=== PATIENT | male | born 1980 | race Caucasian/White ===

== ENCOUNTER 2018-05-18 17:14 | Emergency (ER) | payer OTHER ==
[~2018-05-18] VITALS: Ht 188 cm; Wt 102.1 kg
[2018-05-18] MEDS ORDERED: SUBOXONE 12 MG1 EACH PO (17:30)
[2018-05-18] MEDS ORDERED: CLONAZEPAM 1 MG1 M1 PO (17:30)
[2018-05-18] MEDS ORDERED: GARAMYCIN5 ML OPHTHALMIC (18:50)
[2018-05-18 19:10] VITALS: BP 144/86
== END 2018-05-18 19:10 | disposition home or self-care (01) ==
LOC: M.ERS 17:14
DX: T26.91XA Corrosion of right eye and adnexa, part unspecified, initial encounter (principal); Y93.89 Activity, other specified; Y92.89 Other specified places as the place of occurrence of the external cause; Y99.8 Other external cause status

== ENCOUNTER 2018-12-18 15:58 | Emergency (ER) | payer OTHER ==
[~2018-12-18] VITALS: Ht 188 cm; Wt 97.5 kg
[~2018-12-18 15:58] MED LIST: CLONAZEPAM 1 MG1 M1 PO; GARAMYCIN5 ML OPHTHALMIC; SUBOXONE 12 MG1 EACH PO
[2018-12-18] MEDS ORDERED: IBUPROFEN 800800 M1 PO (17:04)
[2018-12-18] MEDS ORDERED: NORCO 5-325 TA1 EAC1 PO (17:04)
[2018-12-18 17:32] VITALS: BP 139/87
== END 2018-12-18 17:32 | disposition home or self-care (01) ==
LOC: M.ERS 15:58
DX: S22.42XA Multiple fractures of ribs, left side, initial encounter for closed fracture (principal); F17.210 Nicotine dependence, cigarettes, uncomplicated; W18.39XA Other fall on same level, initial encounter; Y93.89 Activity, other specified; Y92.89 Other specified places as the place of occurrence of the external cause; Y99.8 Other external cause status

== ENCOUNTER 2020-06-17 15:05 | Emergency (ER) | payer OTHER ==
[~2020-06-17] VITALS: Ht 188 cm; Wt 99.8 kg
[~2020-06-17 15:05] MED LIST changes: +IBUPROFEN 800800 M1 PO; +NORCO 5-325 TA1 EAC1 PO
[2020-06-17 15:47] LABS: ABSOLUTE BASOPHILS 0.1 thou/uL (0.0-0.2); ABSOLUTE EOSINOPHILS 0.9 thou/uL (0.0-0.7); ABSOLUTE LYMPHOCYTES 2.3 thou/uL (0.8-5.3); ABSOLUTE MONOCYTES 0.7 thou/uL (0.0-1.2); ABSOLUTE NEUTROPHILS 10.5 thou/uL (1.6-8.1); BASOPHILS 0.7 %; EOSINOPHILS 6.3 %; HEMATOCRIT 46.4 % (42.0-52.0); HEMOGLOBIN 15.9 gm/dL (14.0-18.0); LYMPHOCYTES 15.8 %; MCH 29.6 pg (26.0-34.0); MCHC 34.3 g/dL (28.0-37.0); MCV 86.3 fL (80.0-100.0); MONOCYTES 4.6 %; MPV 7.1 fl. (7.2-11.1); NUCLEATED RBCS 0 /100WBC; PLATELET COUNT* 379 thou/uL (150-400); POLYS 72.6 %; RBC 5.38 mil/uL (4.50-6.00); RDW-CV 13.1 % (10.5-14.5); WBC 14.5 thou/uL (4.0-11.0)
[2020-06-17 15:51] LABS: CALCIUM 9.8 mg/dL (8.5-10.1); CREATININE 0.8 mg/dL (0.6-1.3); POTASSIUM 3.5 mmol/L (3.5-5.1)
[2020-06-17 15:56] LABS: ALBUMIN 4.2 g/dL (3.4-5.0); TOTAL BILIRUBIN 0.4 mg/dL (<0.1-1.0); TOTAL PROTEIN 8.7 g/dL (6.4-8.2)
[2020-06-17 15:58] LABS: URINE BILIRUBIN NEGATIVE (Negative); URINE BLOOD NEGATIVE (Negative); URINE CLARITY CLEAR; URINE COLOR YELLOW; URINE GLUCOSE-RANDOM NEGATIVE (Negative); URINE KETONES NEGATIVE (Negative); URINE LEUKOCYTES-REFLEX NEGATIVE (Negative); URINE NITRITE-REFLEX NEGATIVE (Negative); URINE PROTEIN NEGATIVE (Negative); URINE UROBILINOGEN 0.2 E.U./dl (0.2-1.0)
[2020-06-17 16:01] LABS: ACETAMINOPHEN < 2 ug/mL (10-30); ALCOHOL < 10 mg/dL (<10); SALICYLATE 3.6 mg/dL (2.8-20.0)
[2020-06-17 16:06] LABS: AMP/METHAMP Negative (Negative); BARBITURATES Negative (Negative); BENZODIAZEPINES Negative (Negative); COCAINE Negative (Negative); METHADONE Negative (Negative); OPIATES Negative (Negative); PCP Negative (Negative); THC POSITIVE (Negative)
[2020-06-17] MEDS ORDERED: ZOFRAN ODT4 MG DISSOLVE (16:29)
[2020-06-17 16:47] VITALS: BP 124/68
== END 2020-06-17 16:49 | disposition home or self-care (01) ==
LOC: M.ERS 15:05
PROVIDERS: Emergency Medicine Emergency Medical Services
DX: F11.23 Opioid dependence with withdrawal (principal); F12.10 Cannabis abuse, uncomplicated; F17.210 Nicotine dependence, cigarettes, uncomplicated; Z88.8 Allergy status to other drugs, medicaments and biological substances; Z87.442 Personal history of urinary calculi